=== PATIENT | female | born 1960 ===

== ENCOUNTER 2025-02-28 11:27 | Inpatient (IN) | payer OTHER ==
[~2025-02-28] VITALS: Ht 154.9 cm; Wt 45.4 kg
[~2025-02-28 11:27] MED LIST: CLONAZEPAM1 MG PO; DICY20TA PO; EFFEXOR XR150 MG PO; FOLIC ACID20 MG PO; PEPCID AC20 MG PO; PROTONIX20 MG PO; ROSUVASTATIN CA20 MG PO; TRAM1TAB98 PO
--- NOTE | 2025-02-28 12:00 | NUR ---
PACIENTE TRAIDA EN AMBULANCIA POR QUEJA DE MAREOS DESDE BILL, DOLOR EN EL CUERPO Y ARDOR Y DOLOR AL ORINAR. SE REALIZA EKG
[2025-02-28] MEDS ORDERED: CLONAZEPAM2 MG PO (12:26)
[2025-02-28] MEDS ORDERED: MORPHINE SULFATE 2 MG/ML SYRINGE IV ONE (12:45)
[2025-02-28] MEDS ORDERED: ONDANSETRON HCL 4 MG in 0.9 % SODIUM CHLORIDE 50 ML IV ONE (12:45)
[2025-02-28] MEDS ORDERED: 0.9 % SODIUM CHLORIDE 1,000 ML IV SCH (12:45)
[2025-02-28] MEDS ORDERED: FAMOTIDINE/PF 20 MG in 0.9 % SODIUM CHLORIDE 8 ML IV PUSH ONE (12:45)
[2025-02-28 13:00] LABS: BASO % 1.7 % (0.1-1.2); EOS # 0.26 (0.04-0.54); EOS % 3.1 % (0.7-7.0); LYMPH # 1.33 (1.18-3.74); LYMPH % 16.0 % (19.3-53.1); MEAN PLATELET VOLUME 8.50 fl (9.4-12.4); MONO # 0.68 (0.24-0.82); MONO % 8.2 % (4.7-12.5); NEUT # 5.87 (1.56-6.13); NEUT % 70.6 % (34.0-71.1); RED CELL DISTRIBUTION WIDTH 13.2 % (11.6-14.4)
[2025-02-28 13:14] LABS: URINE APPEARANCE Clear; URINE BILIRRUBIN Negative (NEGATIVE); URINE BLOOD Negative; URINE COLOR Yellow; URINE GLUCOSE Negative (NEGATIVE); URINE KETONE Negative (NEGATIVE); URINE LEUKOCYTE Trace; URINE NITRATE Negative; URINE PROTEIN Negative (NEGATIVE); URINE UROBILINOGEN 0.2 E.U./dl
[2025-02-28 13:17] LABS: URINE BACTERIA 9.5 uL (0.0-1933); URINE EPITHELIAL CELLS 6.9 uL (0.0-38.8); URINE RBC 4.2 uL (0.0-20.8); URINE WBC 9.0 uL (0.0-23.2)
--- NOTE | 2025-02-28 13:22 | NUR ---
SE EDUCA PACIENTE SOBRE EL [place] MEDICO Y ESTA REFIERE ENTENDER. SE CANALIZA Y SE ADMINISTRA MEDICAMENTOS LUBA ORDEN MEDICA. SE KT MUESTRAS DE LABORATORIOS Y SE ENVIAN. SE HACE ENTREGA DE ENVASE DE U/A. PENDIENTE A CT SCAN
[2025-02-28 13:23] LABS: ALT/SGPT 20.0 U/L (12-78); AST/SGOT 17.0 U/L (15-37); BILIRUBIN TOTAL 0.24 mg/dL (0.3-1.2); BUN CREA RATIO 11.0 (7.0-25.0); CREATININE SERUM 0.54 mg/dL (0.55-1.02); GFR 112.95; GLOBULINA 4.9 G/DL (2.4-3.5); GLUCOSE FASTING 99.0 mg/dL (65-100); INR 1.03; OSMOLALITY SERUM 279.0 MOSM/KG (275-295)
[2025-02-28 13:25] LABS: URINE CAST 0.14 uL (0.0-1.40)
[2025-02-28] MEDS ORDERED: FAMOTIDINE/PF 20 MG in 0.9 % SODIUM CHLORIDE 8 ML IV PUSH SCH (19:34)
[2025-02-28] MEDS ORDERED: ONDANSETRON HCL 4 MG in 0.9 % SODIUM CHLORIDE 50 ML IV PRN (19:45)
[2025-02-28] MEDS ORDERED: PIPERACILLIN/TAZOBACTAM SODIUM 3.375 GM in DEXTROSE 5 % IN WATER 100 ML IV SCH (20:00)
[2025-02-28] MEDS ORDERED: CLONAZEPAM 1 MG TABLET PO SCH (20:43)
[2025-02-28] MEDS ORDERED: KETOROLAC TROMETHAMINE 30 MG VIAL IV PRN (20:45)
[2025-03-01 00:07] VITALS: BP 144/69
[2025-03-01 07:26] LABS: INR 1.03
[2025-03-01 08:00] VITALS: BP 112/63; O2SAT 95
[2025-03-01 16:00] VITALS: BP 105/53; O2SAT 95
[2025-03-02 01:16] VITALS: BP 102/61; O2SAT 100
[2025-03-02 08:51] VITALS: BP 124/72; O2SAT 95
[2025-03-02 16:00] VITALS: BP 119/67; O2SAT 97
[2025-03-03 00:15] VITALS: BP 116/64; O2SAT 95
[2025-03-03 08:14] VITALS: BP 111/66; O2SAT 95
[2025-03-03 15:00] VITALS: BP 136/66; O2SAT 99
[2025-03-04] VITALS: BP 113/68; O2SAT 95
[2025-03-04 08:30] VITALS: BP 116/65; O2SAT 96
[2025-03-04] MEDS ORDERED: DIATRIZOATE MEGLUMINE, SODIUM 30 ML BOTTLE PO NR (11:00)
[2025-03-04 16:49] VITALS: BP 155/78; O2SAT 95
[2025-03-05 00:30] VITALS: BP 102/63; O2SAT 97
[2025-03-05 08:00] VITALS: BP 116/63; O2SAT 95
== END 2025-03-05 15:05 | disposition home or self-care (01) | DRG 948 ==
LOC: ER → SURH 21:07
PROVIDERS: General Practice; ADMIT Surgery; ATTEND Surgery
PROC: BW21YZZ Computerized Tomography (CT Scan) of Abdomen and Pelvis using Other Contrast (ICD-10-PCS; principal; 2025-02-28)
PROC: BW21YZZ Computerized Tomography (CT Scan) of Abdomen and Pelvis using Other Contrast (ICD-10-PCS; 2025-03-04)
DX: G89.18 Other acute postprocedural pain (principal); K51.90 Ulcerative colitis, unspecified, without complications; R10.8A3 Suprapubic tenderness; K57.30 Diverticulosis of large intestine without perforation or abscess without bleeding